=== PATIENT | female | born 1985 | race Caucasian/White ===

== ENCOUNTER 2024-11-01 14:55 | Emergency (ER) | payer MEDICAID ==
[~2024-11-01] VITALS: Ht 172.7 cm; Wt 74.5 kg
[2024-11-01 15:02] VITALS: BP 124/88; PULSE 79; RESP 18; O2SAT 98
--- NOTE | 2024-11-01 15:49 | Physician Documentation ---
History of Present Illness ~ Chief Complaint: Laceration Stated Complaint: LEG FOOT PAIN Time Seen by MD: 15:09 HPI Patient is seen today with complaints of laceration to her extensor hallucis tendon of her left foot that occurred about three days ago after dropping a plate on her foot. Patient states she had it loosely soda up at per stage on Thursday. Patient has kept it wrapped and was trying to follow up outpatient but felt her refers referrals fell through the cracks was wanting to get it looked at as soon as possible. Patient has no other concern or complaint at this time. She denies any fevers or chills or increased pain. Medication Reconciliation Allergies: Coded Allergies: No Known Allergies (Unverified , 11/01/24) Review of Systems Constitutional: Denies: chills, fever, weakness Eyes: Denies: pain, blurred vision ENT: Denies: ear pain, nose pain, throat pain, mouth pain Respiratory: Denies: cough, shortness of breath Cardiovascular: Denies: chest pain, palpitations Gastrointestinal: Denies: abdominal pain, nausea, vomiting Genitourinary: Denies: burning, dysuria Female Genitalia: Denies: vaginal discharge, pelvic pain Neurological: Denies: headache, dizziness Musculoskeletal: Denies: pain, swelling Integumentary: Denies: rash, lesions Allergic/Immunologic: Denies: hives, itching Hematologic/Lymphatic: Denies: no symptoms reported Psychiatric: Denies: depression, anxiety Physical Exam Vital Signs: Temperature: 97.1, Source: Temporal, Heart Rate: 79, Respiratory Rate: 18, BP: 124/88, Pulse Oximetry: 98, Weight: 74.550 Oxygen Flow Rate: 0 Physical Exam General: Awake and Alert, no acute distress. HEENT: Conjunctiva pink, Sclera clear, Mucus Membranes moist. Neck: Supple without masses and tenderness. Resp: Unlabored. Lungs clear to auscultation bilaterally. Heart: Regular Rate and rhythm, normal S1 and S2 without murmur, rub or gallop. Musculoskeletal: Patient on exam has laceration of the dorsum of the midfoot in the left foot. Patient has 0/5 strength of the great toe in extension. Patient has no surrounding erythema and no sign of infection of the prepared laceration. Patient is neurovascularly intact distally. Motor function intact distally. Extremities: No cyanosis,clubbing or edema. Skin: Warm and Dry. Progress Results/Orders Results/Orders Vital Signs 11/01/24 15:02 Temp 97.1 Pulse 79 Resp 18 B/P (MAP) 124/88 Pulse Ox 98 O2 Flow Rate 0 Medical Decision Making Findings Patient is seen today with complaints of laceration to her extensor hallucis ten don of her left foot that occurred about three days ago after dropping a plate on her foot. Patient states she had it loosely soda up at per stage on Thursday. Patient has kept it wrapped and was trying to follow up outpatient but felt her refers referrals fell through the cracks was wanting to get it looked at as soon as possible. Patient has no other concern or complaint at this time. She denies any fevers or chills or increased pain. Patient will follow up with Dr. Sykes and go to his office tomorrow in person to make an appointment. I was able to call Dr. Sykes and consult with him and he agreed to see patient out patient and repair the tendon laceration in question. Patient will continue daily dressing changes. Patient was given dressing supplies. They will return to ED with any worsening, concerning or changing symptoms. Departure Disposition: HOME / SELF CARE / HOMELESS Impression: Primary Impression: Laceration Additional Impression: Laceration of extensor hallucis longus tendon Qualified Codes: S96.122A - Laceration of muscle and tendon of long extensor muscle of toe at ankle and foot level, left foot, initial encounter Discharge Instructions: Laceration Care, Adult, [id number] Additional Instructions: Patient will follow up with Dr. Sykes and go to his office tomorrow in person to make an appointment. I was able to call Dr. Sykes and consult with him and he agreed to see patient out patient and repair the tendon laceration in question. Patient will continue daily dressing changes. Patient was given dressing supplies. They will return to ED with any worsening, concerning or changing symptoms. Referrals: NO PRIMARY CARE PROVIDER (PCP) Signature Scribe Signature: No scribe Attestation: No scribe TOBIAS RANDLE PAC Nov 01, 2024 15:49
[2024-11-01 15:53] VITALS: TEMP 97.1
== END 2024-11-01 15:56 | disposition home or self-care (01) ==
LOC: ER 14:57
DX: S96.122A Laceration of muscle and tendon of long extensor muscle of toe at ankle and foot level, left foot, initial encounter (principal); W20.8XXA Other cause of strike by thrown, projected or falling object, initial encounter; Y93.89 Activity, other specified; Y92.89 Other specified places as the place of occurrence of the external cause; Y99.8 Other external cause status
CPT/HCPCS: 99282; A6258; A6449